=== PATIENT | male | born 1955 | race Caucasian/White ===

== ENCOUNTER 2019-01-12 05:46 | Day surgery (SDC) | payer BC ==
[2019-01-12] MEDS ORDERED: DIPRIVAN 200 MG/20 ML IV ONE (05:47)
[2019-01-12] MEDS ORDERED: Lactated Ringers 1,000 ML IV ONE ×2 (05:53→08:34)
[2019-01-12] MEDS ORDERED: Lactated Ringers 1,000 ML IV SCH (06:00)
[2019-01-12 07:47] LABS: ANION GAP 13.7 MEQ/L (5-15); BLOOD UREA NITROGEN 20 mg/dL (9-20); CHLORIDE 112 mmol/L (98-107); Calcium 9.8 mg/dL (8.4-10.2); Carbon Dioxide 22 mmol/L (22-30); Cholesterol 148 mg/dL (50-200); Creatinine 1 1.11 mg/dL (0.66-1.25); Glucose 96 mg/dL (74-106); HDL CHOLESTEROL 45 mg/dL (40-60); LDL, DIRECT 89 mg/dL (30-100); Potassium 4.2 mmol/L (3.5-5.1); Risk Ratio 3.3; SGOT/AST 21 U/L (17-59); SODIUM 144 mmol/L (137-145); TRIGLYCERIDE 90 mg/dL (30-150)
[2019-01-12 09:12] VITALS: O2SAT 99
[2019-01-12 09:20] VITALS: BP 160/80; PULSE 68
--- NOTE | 2019-01-12 09:36 | OP ---
SURGERY DATE/TIME: 01/12/2019 0800 PREOPERATIVE DIAGNOSIS: Screening exam. POSTOPERATIVE DIAGNOSIS: Sigmoid polyp measuring 1.5 cm in the distal sigmoid colon and scattered colonic diverticula. PROCEDURE: Colonoscopy with hot snare polypectomy and cold forceps biopsies. SURGEON: Dr. Myers. ANESTHESIA: MAC. Medications given by anesthesia department. HISTORY: The patient is a 63 year-old white male patient presenting now for his first colonoscopic evaluation. He was appraised of the risks of the procedure including the risk of perforation, phlebitis, untoward reaction to medication, bleeding and missed lesions. The patient verbalized his understanding and desired to have the procedure performed. DESCRIPTION OF PROCEDURE: The patient was given the medications by the anesthesia department. He had continuous pulse oximetry, ECG monitoring, intermittent blood pressure monitoring and tidal CO2 monitoring during the examination. He was placed in the left lateral decubitus position. A digital rectal examination was performed and revealed normal anal sphincter tone, no masses and normal prostate. The flexible Olympus pediatric colonoscope was used to intubate the rectum. A view of the colon was developed sequentially to the cecum. It was noted that the colon was quite tortuous. We did note some scattered diverticula throughout the colon. There was also noted approximately 1.5 cm diameter polyp that was sessile in the distal sigmoid colon. We first biopsied these using cold biopsy technique and then removed the polyp using hot polypectomy snare. The polyp was retrieved for pathologic evaluation. The scope was removed from the patient who tolerated the procedure well and was sent back to OP recovery in good condition. The prep was noted to be fair to good.
== END 2019-01-12 09:25 | disposition home or self-care (01) ==
LOC: LAB 05:46 → SDC 05:46
PROVIDERS: ATTEND Family Medicine
DX: K63.5 Polyp of colon (principal); J44.9 Chronic obstructive pulmonary disease, unspecified; I10 Essential (primary) hypertension; K57.90 Diverticulosis of intestine, part unspecified, without perforation or abscess without bleeding
CPT/HCPCS: 36415; 80048; 80061; 83721; 84450; 88305; J2704

== ENCOUNTER 2021-06-09 06:27 | Day surgery (SDC) | payer BC ==
[2021-06-09] MEDS ORDERED: Lactated Ringers 1,000 ML IV SCH (06:30)
[2021-06-09 07:20] LABS: ANION GAP 9.7 MEQ/L (5-15); BLOOD UREA NITROGEN 11 mg/dL (9-20); CHLORIDE 112 mmol/L (98-107); Carbon Dioxide 23 mmol/L (22-30); Cholesterol 129 mg/dL (50-200); Creatinine 1 0.94 mg/dL (0.66-1.25); EST GLOMERULAR FILTRATION RATE > 60.0 ML/MIN; Glucose 94 mg/dL (74-106); HDL CHOLESTEROL 43 mg/dL (40-60); LDL, DIRECT 64 mg/dL (30-100); Potassium 3.6 mmol/L (3.5-5.1); SODIUM 141 mmol/L (137-145); TRIGLYCERIDE 102 mg/dL (30-150)
[2021-06-09] MEDS ORDERED: DIPRIVAN 200 MG/20 ML IV ONE (07:43)
[2021-06-09 08:53] VITALS: O2SAT 98
[2021-06-09 08:57] VITALS: BP 158/88; PULSE 50
--- NOTE | 2021-06-09 11:20 | OP ---
SURGERY DATE/TIME: 06/09/2021 0756 PREOPERATIVE DIAGNOSIS: Colon polyps. POSTOPERATIVE DIAGNOSIS: Diverticulosis mostly in the sigmoid colon otherwise normal exam. PROCEDURE: Colonoscopy. SURGEON: Dr. Myers. ANESTHESIA: MAC. Medications given by anesthesia department. HISTORY: The patient is a 65 year-old white male patient presenting now for reinvestigation three years past removing polyps from his colon which were tubular adenomas. The patient is felt to need to have surveillance examination. He was appraised of the risks of the procedure including the risk of perforation, phlebitis, untoward reaction to medication, bleeding and missed lesions. The patient verbalized his understanding and desired to have the procedure performed. DESCRIPTION OF PROCEDURE: The patient was given the medications by the anesthesia department. He had continuous pulse oximetry, ECG monitoring, intermittent blood pressure monitoring and tidal CO2 monitoring during the examination. He was placed in the left lateral decubitus position. A digital rectal examination was performed and revealed normal anal sphincter tone, no masses and normal prostate. The flexible Olympus pediatric colonoscope was used to intubate the rectum. A view of the colon was developed sequentially to the cecum. Upon insertion and withdrawal, including a retroflex view in the rectum, no mucosal lesions were encountered other than scattered diverticula mostly in the sigmoid colon. The scope was removed from the patient who tolerated the procedure well and was sent back to OP recovery in good condition. The prep was noted to be fair to good.
== END 2021-06-09 09:10 | disposition home or self-care (01) ==
LOC: SDC 06:27
PROVIDERS: ATTEND Family Medicine
DX: K57.30 Diverticulosis of large intestine without perforation or abscess without bleeding (principal); Z86.010 Personal history of colon polyps; I10 Essential (primary) hypertension; J44.9 Chronic obstructive pulmonary disease, unspecified; Z79.899 Other long term (current) drug therapy
CPT/HCPCS: 36415; 80048; 80061; 83721; J2704